=== PATIENT | female | born 2000 | race Asian ===

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

== ENCOUNTER → 2019-03-23 | Outpatient (CLI) | payer BC ==
[~2019-03-23] MED LIST changes: +NAPR-915 PO; -NAPR500T3 PO; +NICO-533 TD; -NICO1PAT16 TD
--- NOTE | 2019-03-23 16:52 | Diagnostic Imaging Report ---
PROCEDURE: US Non-ob pelvis comp/trans. TECHNIQUE: Multiple realtime grayscale images were obtained of the pelvis in various projections endovaginally. Transabdominal imaging was also performed. INDICATION: Abnormal uterine bleeding FINDINGS: The uterus measures 7.0 x 4.1 x 4.4 cm. Endometrial stripe is 4 mm. The myometrium and endometrium both appear normal. The ovaries are normal in size and have normal blood flow. There is a 1.5 cm simple cyst on the right ovary. There is no free fluid. IMPRESSION: Negative pelvic sonogram. Dictated by: Dictated on workstation # [id number]
== END ==
LOC: RAD 13:26
PROVIDERS: ATTEND Family Medicine
DX: N93.9 Abnormal uterine and vaginal bleeding, unspecified (principal)
CPT/HCPCS: 76830; 76856

== ENCOUNTER → 2019-06-22 | Outpatient (CLI) | payer BC ==
--- NOTE | 2019-06-22 12:37 | Diagnostic Imaging Report ---
PROCEDURE: CT head without contrast. TECHNIQUE: Multiple contiguous axial images were obtained through the internal auditory canals without the use of intravenous contrast. Auto Exposure Controls were utilized during the CT exam to meet ALARA standards for radiation dose reduction. INDICATION: Chronic left ear drainage. FINDINGS: Middle ear cavities are clear, bilaterally. There is no evidence of ossicular malalignment or disruption. External auditory canals are also unremarkable as are mastoid air cells, bilaterally. There is no site of bone destruction. The tympanic membranes are not fully visualized, although there is no evidence of thickening or hemorrhage detected. IMPRESSION: No evidence of temporal bone abnormality identified. Although tympanic membranes are not fully visualized, there is no evidence of tympanic membrane thickening or hematoma. Dictated by: Dictated on workstation # [id number]
== END ==
LOC: RAD 11:59
PROVIDERS: ATTEND Otolaryngology Otolaryngology/Facial Plastic Surgery
DX: H72.92 Unspecified perforation of tympanic membrane, left ear (principal); H92.12 Otorrhea, left ear
CPT/HCPCS: 70450